=== PATIENT | female | born 1935 | race Caucasian/White ===

== ENCOUNTER 2016-05-13 09:27 | Inpatient (IN) | payer OTHER, MEDICARE ==
[~2016-05-13] VITALS: Ht 160 cm; Wt 69.2 kg
[2016-05-13] VITALS (13 sets, daily range): BP systolic 133–188; BP diastolic 63–80; PULSE 56–78; RESP 12–20; TEMP 97.9–98.7; O2SAT 97–100
[~2016-05-13 09:27] MED LIST: ASPI325T PO; CALC600T34 PO; CO Q100C7 PO; CYCL-36 PO; GEMF600 PO; GLIP5 PO; LOVA1TAB47 PO; METO50TA PO; SITA50 PO; VASO10TA8 PO; VICOTAB4 PO
[2016-05-13] MEDS ORDERED: HYDR-3516 PO (09:54)
[2016-05-13] MEDS ORDERED: SITA25 PO (09:54)
[2016-05-13] MEDS ORDERED: GLIP5TAB8 PO (09:54)
[2016-05-13] MEDS ORDERED: FENO1TAB39 PO (09:54)
[2016-05-13] MEDS ORDERED: FURO20TA PO (09:54)
[2016-05-13] MEDS ORDERED: TIZA4CAP3 PO (09:54)
[2016-05-13] MEDS ORDERED: ENAL2.5T PO (09:54)
[2016-05-13] MEDS ORDERED: LEVO25TA4 PO (09:54)
[2016-05-13] MEDS ORDERED: SODIUM CHLORIDE 0.9% FLUSH 5 ML FLUSH IVF PRN (10:00)
[2016-05-13 10:08] LABS: BASOPHIL # 0.1 TH/MM3 (0-0.2); BASOPHIL % 1.4 % (0.0-2.0); EOSINOPHIL # 0.2 TH/MM3 (0-0.4); EOSINOPHIL % 3.1 % (0.0-4.0); HEMO FLAGS DIFF FINAL; LYMPHOCYTE # 1.6 TH/MM3 (1.0-4.8); MEAN CELL VOLUME 89.3 FL (80.0-100.0); MEAN CORPUSCULAR HGB CONC 33.6 % (32.0-36.0); MONO % 6.9 % (0.0-8.0); NEUT % 63.6 % (16.0-70.0); PLATELET COUNT 224 TH/MM3 (150-450); RED BLOOD COUNT 4.36 MIL/MM3 (4.00-5.30); RED CELL DISTRIBUTION WIDTH 13.4 % (11.6-17.2); WHITE BLOOD COUNT 6.3 TH/MM3 (4.0-11.0)
[2016-05-13 10:22] LABS: APTT (PATIENT) 22.8 SEC (24.3-30.1); PROTHROMBIN TIME - PATIENT 10.6 SEC (9.8-11.6)
[2016-05-13 10:23] LABS: ALT (GPT) 29 U/L (10-53); ANION GAP 9 MEQ/L (5-15); AST (GOT) 22 U/L (15-37); BICARBONATE 27.4 MEQ/L (21.0-32.0); BLOOD UREA NITROGEN 19 MG/DL (7-18); CHLORIDE 103 MEQ/L (98-107); GLOMERULAR FILTRATION RATE 32 ML/MIN (>89); MAGNESIUM 1.9 MG/DL (1.5-2.5); POTASSIUM 3.6 MEQ/L (3.5-5.1); SODIUM (NA) 139 MEQ/L (136-145)
[2016-05-13 10:26] LABS: ALKALINE PHOSPHATASE 36 U/L (45-117); CREATINE KINASE 116 U/L (26-192); TOTAL BILIRUBIN ADULT 0.5 MG/DL (0.2-1.0)
--- NOTE | 2016-05-13 10:26 | RADRPT ---
EXAM DATE/TIME: 05/13/2016 10:13 [place] COMPARISON: No previous studies available for comparison. INDICATIONS : Heart Palpitations MEDICAL HISTORY : None. SURGICAL HISTORY : None. ENCOUNTER: Initial ACUITY: 1 day PAIN SCORE: 5/10 LOCATION: Bilateral chest FINDINGS: PA and lateral views of the chest demonstrate a normal-sized cardiac silhouette. There is no effusion , consolidation, or pneumothorax. The bones and soft tissues demonstrate no acute abnormality. Multip le EKG lines overlie the patient. CONCLUSION: No acute cardiopulmonary abnormality is identified. Charlie Whitfield MD on May 13, 2016 at 10:24 Board Certified Radiologist. This report was verified electronically.
[2016-05-13 10:39] LABS: CKMB 1.1 NG/ML (0.5-3.6)
--- NOTE | 2016-05-13 10:49 | PD ---
HPI Chief Complaint: Cardiac Complaint Time Seen by Provider: 09:40 Travel History International Travel<30 days: No Contact w/Intl Traveler<30days: No Traveled to known affect area: No History of Present Illness HPI Patient is an 81-year-old female who comes in because she says her internal combustion engine assembler told her to come in. She says she has been having irregular heartbeat. She says she has been feeling very dizzy especially when standing. She denies any falls. She says she was wearing a Holter monitor and it showed long pauses in her heart beats. She says she was told to come in yesterday, but she had things to do first. She denies any chest pain or shortness of breath. She says she is not having any symptoms at this time. PFSH Past Medical History Heart Rhythm Problems: Yes Cardiovascular Problems: Yes (RHYTHM PROBLEMS / HYPERTENSION) Diabetes: Yes Patient Takes Glucophage: No Diminished Hearing: No Hypertension: Yes Medical other: Yes Renal Failure: Yes (STAGE III) Influenza Vaccination: Yes Past Surgical History Hysterectomy: Yes Tonsillectomy: Yes Social History Alcohol Use: No Tobacco Use: No Substance Use: No Allergies-Medications (Allergen,Severity, Reaction): Coded Allergies: Aspirin (Verified Allergy, Severe, 05/13/16) STAGE III KIDNEY FAILURE Sulfa (Verified Allergy, Mild, Rash, 05/13/16) Reported Meds & Prescriptions Reported Meds & Active Scripts Active Reported Tizanidine (Tizanidine HCl) 4 Mg Cap 4 Mg PO TID PRN Levothyroxine (Levothyroxine Sodium) 25 Mcg Tab 25 Mcg PO DAILY Hydrocodone-Acetaminophen 5-325 mg Tab 1 Tab PO Q6H PRN Glipizide 5 Mg Tab 5 Mg PO BIDAC Take 30 minutes before a meal Furosemide 20 Mg Tab 20 Mg PO MOWEDFRI Fenofibrate 120 Mg Tab 108 Mg PO DAILY Enalapril (Enalapril Maleate) 2.5 Mg Tab 2.5 Mg PO DAILY Januvia (Sitagliptin Phosphate) 25 Mg Tab 25 Mg PO DAILY Review of Systems Except as stated in HPI: all other systems reviewed are Neg General / Constitutional: No: Fever, Chills Eyes: No: Blurred Vision HENT: Positive: Lightheadedness, No: Headaches Cardiovascular: Positive: Irregular Rhythm, No: Chest Pain or Discomfort Respiratory: No: Shortness of Breath Gastrointestinal: No: Nausea, Vomiting Musculoskeletal: No: Myalgias, Arthralgias Skin: No Rash Neurologic: Positive: Dizziness, No: Weakness Physical Exam Narrative GENERAL: Awake and alert in no acute distress. SKIN: Warm and dry. HEAD: Atraumatic. Normocephalic. EYES: Pupils equal and round. No scleral icterus. Extraocular movements intact , no nystagmus. ENT: Mucous membranes pink and moist. NECK: Trachea midline. No JVD. CARDIOVASCULAR: Regular rate and rhythm. No murmur appreciated. RESPIRATORY: No accessory muscle use. Clear to auscultation. Breath sounds equal bilaterally. GASTROINTESTINAL: Abdomen soft, non-tender, nondistended. MUSCULOSKELETAL: No obvious deformities. No clubbing. No cyanosis. No edema. NEUROLOGICAL: Awake and alert. No obvious cranial nerve deficits. Motor grossly within normal limits. Normal speech. PSYCHIATRIC: Appropriate mood and affect; insight and judgment normal. Data Data Last Documented VS Vital Signs Date Time Temp Pulse Resp B/P Pulse Ox O2 Delivery O2 Flow Rate FiO2 05/13/16 11:05 60 16 140/63 100 Room Air 05/13/16 09:37 98.4 Orders Electrocardiogram (05/13/16 ) Ckmb (Isoenzyme) Profile (05/13/16 09:49) Complete Blood Count With Diff (05/13/16 09:49) Comprehensive Metabolic Panel (05/13/16 09:49) Magnesium (Mg) (05/13/16 09:49) Prothrombin Time / Inr (Pt) (05/13/16 09:49) Act Partial Throm Time (Ptt) (05/13/16 09:49) Troponin I (05/13/16 09:49) Ecg Monitoring (05/13/16 09:49) Bilateral Bp Monitoring (05/13/16 09:49) Iv Access Insert/Monitor (05/13/16 09:49) Oximetry (05/13/16 09:49) Sodium Chloride 0.9% Flush (Ns Flush) (05/13/16 10:00) Chest, Pa & Lat (05/13/16 09:49) CKMB (05/13/16 09:55) CKMB% (05/13/16 09:55) Admit To Inpatient (05/13/16 ) Inpatient Certification (05/13/16 ) Diet Heart Healthy (05/13/16 Lunch) Activity Bed Rest With Brp (05/13/16 11:35) Vital Signs (Adult) ROSI.Q4H (05/13/16 11:35) Admit Order (Ed Use Only) (05/13/16 ) Consult Cardiology (05/13/16 ) Labs Laboratory Tests Test 05/13/16 09:55 White Blood Count 6.3 TH/MM3 Red Blood Count 4.36 MIL/MM3 Hemoglobin 13.1 GM/DL Hematocrit 39.0 % Mean Corpuscular Volume 89.3 FL Mean Corpuscular Hemoglobin 30.0 PG Mean Corpuscular Hemoglobin 33.6 % Concent Red Cell Distribution Width 13.4 % Platelet Count 224 TH/MM3 Mean Platelet Volume 8.3 FL Neutrophils (%) (Auto) 63.6 % Lymphocytes (%) (Auto) 25.0 % Monocytes (%) (Auto) 6.9 % Eosinophils (%) (Auto) 3.1 % Basophils (%) (Auto) 1.4 % Neutrophils # (Auto) 4.0 TH/MM3 Lymphocytes # (Auto) 1.6 TH/MM3 Monocytes # (Auto) 0.4 TH/MM3 Eosinophils # (Auto) 0.2 TH/MM3 Basophils # (Auto) 0.1 TH/MM3 CBC Comment DIFF FINAL Differential Comment Prothrombin Time 10.6 SEC Prothromb Time International 1.0 RATIO Ratio Activated Partial 22.8 SEC Thromboplast Time Sodium Level 139 MEQ/L Potassium Level 3.6 MEQ/L Chloride Level 103 MEQ/L Carbon Dioxide Level 27.4 MEQ/L Anion Gap 9 MEQ/L Blood Urea Nitrogen 19 MG/DL Creatinine 1.55 MG/DL Estimat Glomerular Filtration 32 ML/MIN Rate Random Glucose 203 MG/DL Calcium Level 9.2 MG/DL Magnesium Level 1.9 MG/DL Total Bilirubin 0.5 MG/DL Aspartate Amino Transf 22 U/L (AST/SGOT) Alanine Aminotransferase 29 U/L (ALT/SGPT) Alkaline Phosphatase 36 U/L Total Creatine Kinase 116 U/L Creatine Kinase MB 1.1 NG/ML Troponin I LESS THAN 0.02 NG/ML Total Protein 7.3 GM/DL Albumin 4.0 GM/DL Thyroid Stimulating Hormone 1.240 uIU/ML 3rd Gen [facility] Medical Decision Making Medical Screen Exam Complete: Yes Emergency Medical Condition: Yes Medical Record Reviewed: Yes Interpretation(s) ECG shows normal sinus rhythm at 61. No ST elevation or depression. Rate is regular. Differential Diagnosis Arrhythmia versus electrolyte abnormality versus ACS Narrative Course Patient is an 81-year-old female who comes in because her heart rate has been irregular, and her internal combustion engine assembler told her to come in. Currently her exam shows no abnormalities. Labs sent show no acute abnormalities. Patient stable on the emergency department. I spoke with Dr. Contreras of cardiology who will see the patient is an inpatient. Patient likely needs a pacemaker as she has been having pauses in her heart rate. Will be admitted for further management. Diagnosis Primary Impression: Cardiac dysrhythmia Qualified Code: I49.8 - Other cardiac arrhythmia Admitting Information Admitting Physician Requests: Admit Luciana Mayberry MD May 13, 2016 10:49
[2016-05-13] MEDS ORDERED: ACETAMINOPHEN/HYDROcodone 325 MG/5 MG TAB PO PRN (15:00)
--- NOTE | 2016-05-13 15:15 | HHI.HP ---
[facility] Service [place] [facility] Primary Care Physician Sophie Mitchell MD Admission Diagnosis Cardiac arrhythmia Diagnoses: Chief Complaint: Dizziness lightheadedness Travel History International Travel<30 Days: No Contact w/Intl Traveler <30 Da: No Traveled to Known Affected Are: No History of Present Illness Patient is a very pleasant 81-year-old female with known history of hypertension hyperlipidemia, diabetes type 2 who has been having palpitations for many years now associated with some dizziness and generalized fatigue. It is unclear if she has A. fib but she states that she has irregular rhythm. Patient was on beta blockers she was on metoprolol 50 mg twice a day. Followed as an outpatient by a furnace filler who latter part of February did a stress test and 24-hour Holter monitoring which was apparently negative. However for the past 30 days been having same symptoms and 4 days ago was fitted with an event monitor because of her symptoms. With regards to her diabetes type 2 patient states she has good hypoglycemic awareness and above symptoms are definitely different from her hypoglycemic reaction which she rarely gets Apparently on fourth day of event monitoring. - Yesterday - fourth day was called by company and was instructed to come here to the emergency room. However patient stated that she had some laundry to finish that's why she didn' t come here.. On review of her medication she was on metoprolol 50 mg twice a day. This was decreased to 25 mg daily 2 days ago. Patient otherwise denies any fever or chills, no syncopal episodes ,chest pain shortness of breath paroxysmal nocturnal dyspnea orthopnea or any leg swelling Review of Systems Constitutional: DENIES: Diaphoretic episodes, Fatigue, Fever, Weight gain, Weight loss, Chills, Dizziness, Change in appetite, Night Sweats Endocrine: DENIES: Abnorml menstrual pattern, Heat/cold intolerance, Polydipsia , Polyuria, Polyphagia Eyes: DENIES: Blurred vision, Diplopia, Eye inflammation, Eye pain, Vision loss , Photosensitivity, Double Vision Ears, nose, mouth, throat: DENIES: Tinnitus, Hearing loss, Vertigo, Nasal discharge, Oral lesions, Throat pain, Hoarseness, Ear Pain, Running Nose, Epistaxis, Sinus Pain, Toothache, Odynophagia Respiratory: DENIES: Apneas, Cough, Snoring, Wheezing, Hemoptysis, Sputum production, Shortness of breath Cardiovascular: COMPLAINS OF: Palpitations, DENIES: Chest pain, Syncope, Dyspnea on Exertion, PND, Lower Extremity Edema, Orthopnea, Claudication Gastrointestinal: DENIES: Abdominal pain, Black stools, Bloody stools, Constipation, Diarrhea, Nausea, Vomiting, Difficulty Swallowing, Anorexia Genitourinary: DENIES: Abnormal vaginal bleeding, Dysmenorrhea, Dyspareunia, Sexual dysfunction, Urinary frequency, Urinary incontinence, Urgency, Hematuria , Dysuria, Nocturia, Vaginal discharge Musculoskeletal: COMPLAINS OF: Back pain, DENIES: Joint pain, Muscle aches, Stiffness, Joint Swelling, Neck pain Integumentary: DENIES: Abnormal pigmentation, Pruritus, Rash, Nail changes, Breast masses, Breast skin changes, Nipple discharge Hematologic/lymphatic: DENIES: Bruising, Lymphadenopathy Immunologic/allergic: DENIES: Eczema, Urticaria Neurologic: DENIES: Abnormal gait, Headache, Localized weakness, Paresthesias, Seizures, Speech Problems, Tremor, Poor Balance Psychiatric: DENIES: Anxiety, Confusion, Mood changes, Depression, Hallucinations, Agitation, Suicidal Ideation, Homicidal Ideation, Delusions Past Family Social History Past Medical History Hypertension Chronic back pain Hypothyroidism Diabetes type 2 Chronic kidney insufficiency Past Surgical History Hysterectomy Left rotator cuff surgery 15 years ago Right knee surgery 1960 Reported Medications Enalapril 2.5 mg daily Midrin 4 Mg 3 Times a Day Januvia 25 Mg Daily Tri-Chlor 148 Mg Daily Lasix 20 Mg Sunday Hydrocodone 10 Mg Every 8 When Necessary Glipizide 5 Mg Twice a Day Synthroid 25 g Daily Allergies: Coded Allergies: Aspirin (Verified Allergy, Severe, 05/13/16) STAGE III KIDNEY FAILURE Sulfa (Verified Allergy, Mild, Rash, 05/13/16) Family History Noncontributory Social History Smoker quit many years ago 30 years ago Very rarely drinks beer Denies any substance abuse Physical Exam Vital Signs Vital Signs Date Time Temp Pulse Resp B/P Pulse Ox O2 Delivery O2 Flow Rate FiO2 05/13/16 14:49 57 18 165/70 99 Room Air 05/13/16 12:32 67 20 188/75 99 Room Air 05/13/16 11:05 60 16 140/63 100 Room Air 05/13/16 09:37 98.4 62 12 168/72 99 05/13/16 09:31 97.9 72 16 163/72 97 Room Air Physical Exam GENERAL: This is a well-nourished, well-developed patient, in no apparent distress. SKIN: No rashes, ecchymoses or lesions. Cool and dry. HEAD: Atraumatic. Normocephalic. No temporal or scalp tenderness. EYES: Pupils equal round and reactive. Extraocular motions intact. No scleral icterus. No injection or drainage. ENT: Nose without bleeding, pThroat without erythema, tonsillar hypertrophy or exudate. Uvula midline. Airway patent. NECK: Trachea midline. No JVD or lymphadenopathy. Supple, nontender, no meningeal signs. CARDIOVASCULAR: Bradycardia heart rate in the 50s sinus and rhythm without murmurs, gallops, or rubs. RESPIRATORY: Clear to auscultation. Breath sounds equal bilaterally. No wheezes , rales, or rhonchi. GASTROINTESTINAL: Abdomen soft, non-tender, nondistended. No hepato-splenomegaly , or palpable masses. No guarding. MUSCULOSKELETAL: Extremities without clubbing, cyanosis, or edema. No joint tenderness, effusion, or edema noted. No calf tenderness. Negative Homans sign bilaterally. NEUROLOGICAL: Awake and alert. Cranial nerves II through XII intact. Motor and sensory grossly within normal limits. Five out of 5 muscle strength in all muscle groups. Normal speech. Laboratory Laboratory Tests Test 05/13/16 09:55 White Blood Count 6.3 Red Blood Count 4.36 Hemoglobin 13.1 Hematocrit 39.0 Mean Corpuscular Volume 89.3 Mean Corpuscular Hemoglobin 30.0 Mean Corpuscular Hemoglobin 33.6 Concent Red Cell Distribution Width 13.4 Platelet Count 224 Mean Platelet Volume 8.3 Neutrophils (%) (Auto) 63.6 Lymphocytes (%) (Auto) 25.0 Monocytes (%) (Auto) 6.9 Eosinophils (%) (Auto) 3.1 Basophils (%) (Auto) 1.4 Neutrophils # (Auto) 4.0 Lymphocytes # (Auto) 1.6 Monocytes # (Auto) 0.4 Eosinophils # (Auto) 0.2 Basophils # (Auto) 0.1 CBC Comment DIFF FINAL Differential Comment Prothrombin Time 10.6 Prothromb Time International 1.0 Ratio Activated Partial 22.8 Thromboplast Time Sodium Level 139 Potassium Level 3.6 Chloride Level 103 Carbon Dioxide Level 27.4 Anion Gap 9 Blood Urea Nitrogen 19 Creatinine 1.55 Estimat Glomerular Filtration 32 Rate Random Glucose 203 Calcium Level 9.2 Magnesium Level 1.9 Total Bilirubin 0.5 Aspartate Amino Transf 22 (AST/SGOT) Alanine Aminotransferase 29 (ALT/SGPT) Alkaline Phosphatase 36 Total Creatine Kinase 116 Creatine Kinase MB 1.1 Troponin I LESS THAN 0.02 Total Protein 7.3 Albumin 4.0 Result Diagram: 05/13/1655 05/13/16954 Imaging Last Impressions Chest X-Ray 05/13/16948 Signed Impressions: Service Date/Time: Friday, May 13, 2016 10:13 - CONCLUSION: No acute cardiopulmonary abnormality is identified. Charlie Whitfield MD Assessment and Plan Assessment and Plan 81 year old female presenting withsymptoms of dizziness and generalized weakness , palpitations Bradarrhythmia on event monitor currently on telemetry in sinus rhythm heart rate in the 50s We'll discontinue beta timothy altogether. Cardiology has been consulted. We will place on telemetry. History of hypertension Patient continue on Vasotec 2.5 mg daily. Lasix 20 mg Sunday We'll add calcium channel timothy amlodipine 2.5 mg by mouth daily for better control History of diabetes type 2 patient states good hypoglycemic awareness Will continue checking blood sugars twice a day Check a hemoglobin A1c History of hyperlipidemia continue on Tri-Cor History of hypothyroidism continue Synthroid 25 g daily check TSH History of chronic back pain Continue on Lortab 10 mg every 8. Tizanidine 4 mg 3 times a day History of chronic kidney insufficiency. Her creatinine is near baseline Lovenox for DVT prophylaxis Maci Parikh MD May 13, 2016 15:15 Maci Parikh MD May 13, 2016 15:15
[2016-05-13] MEDS: amLODIPine BESYLATE 5 MG TAB PO SCH (15:31)
[2016-05-13] MEDS: ACETAMINOPHEN/HYDROcodone 325 MG/10 MG TAB PO PRN (17:52)
--- NOTE | 2016-05-13 20:44 | MB ---
cc: EREN GODWIN YU H. M.D. BARTHOLOMEW,ZOIE Lino MD DATE OF CONSULTATION: 05/13/2016. REASON FOR CONSULTATION: Cardiac arrhythmia with pauses. PRIMARY CARE PHYSICIAN: Janis Mitchell MD. PRIMARY PROJECT MANAGEMENT ANALYST: Zoie Arnold MD. HISTORY OF PRESENT ILLNESS: Anali Ramirez is a pleasant 81-year-old female who presented to the [facility] Emergency Room on May 13, 2016 at the request of her outpatient real estate appraiser, Dr. Zoie Arnold. Anali had been worked up for palpitations including a stress test which was negative and then a Holter monitor. Afterwards an event monitor was placed and episodes of significant pauses of 3 to 4-1/2 seconds were noted. The patient correlated these symptoms with dizziness occasionally. After seeing Dr. Arnold in the office yesterday (May 12, 2016), Dr. Arnold instructed the patient that she should come to the emergency room. Ms. Ramirez had stuff do to around the house so she presented today. She currently denies chest pain, shortness of breath or lightheadedness. She previously was on metoprolol 50 milligrams twice a day and this was then decreased to 25 milligrams daily two to three days ago. When she has the episodes she feels extremely lightheaded for a few seconds and then it goes away. PAST MEDICAL HISTORY: 1. Hypertension 2. Chronic back pain. 3. Hypothyroidism. 4. Type 2 diabetes mellitus. 5. Chronic kidney disease. PAST SURGICAL HISTORY: 1. Hysterectomy. 2. Left rotator cuff surgery (fifteen years ago). 3. Right knee surgery (1960). ALLERGIES: 1. ASPIRIN. 2. SULFA DRUGS. MEDICATIONS: 1. Enalapril 2.5 milligrams daily. 2. Midodrine 4 milligrams three times a day. 3. Januvia 25 milligrams daily. 4. Tricor 148 milligrams daily. 5. Lasix 20 milligrams Sunday, Sunday, Sunday. 6. Hydrocodone 10 milligrams every 8 hours as needed for pain. 7. Glipizide 5 milligrams twice a day. 8. Synthroid 25 micrograms daily. FAMILY HISTORY: Denies premature coronary artery disease or sudden cardiac within the family. SOCIAL HISTORY: The patient previously was a smoker but quit around 30 years ago. She rarely drinks beer. Denies any substance abuse. REVIEW OF SYSTEMS: Fourteen systems were reviewed including osteopathic in the history and physical with pertinent positives and negatives as above; otherwise negative. PHYSICAL EXAMINATION VITAL SIGNS: Temperature 98.4, heart rate 56, blood pressure 168/70, respirations 16, pulse ox 98% on room air. GENERAL: In general the patient appears well and in no acute distress. Awake, alert and oriented times three. HEAD, EYES, EARS, NOSE, THROAT: Extraocular muscles intact. Mucous membranes moist. NECK: The neck is supple. No JVD at 45 degrees. No carotid bruits heard bilaterally. Carotid upstroke is brisk in nature. HEART: Regular rate and rhythm. Positive first and second heart sounds with no murmurs, gallops or rubs. LUNGS: Clear to auscultation bilaterally. No wheezes, rales or rhonchi. ABDOMEN: Soft, nontender, nondistended. No organomegaly noted. EXTREMITIES: No clubbing, cyanosis or edema. Femoral and distal pulses are intact bilaterally. NEUROLOGIC: No focal deficits. SKIN: Warm, dry and intact. OSTEOPATHIC: Osteopathically, no kyphoscoliosis, lordosis or paraspinal tender points. LABORATORY FINDINGS: Hemoglobin 13.1, hematocrit 39.0, platelets 224,000. Potassium 3.6, BUN 19, creatinine 1.55. Troponin less than 0.02. TSH 1.24. EKGS: Electrocardiogram (May 13, 2078 at 0939): Sinus rhythm at 61 beats per minute, poor R-wave progression, cannot rule out possible old anterior myocardial infarction. IMPRESSIONS: 1. Significant pauses on event monitor of 3 to 4.5 seconds for which the patient is symptomatic and has lightheadedness and pre-syncopal episodes. 2. Hypertension. 3. Chronic back pain. 4. Hypothyroidism. 5. Type 2 diabetes mellitus. 6. Chronic kidney insufficiency. 7. Remote tobacco history, quitting around 30 years ago. 8. Pharmacologic nuclear stress test (March 21, 2016) showing no ischemia defect, ejection fraction calculated at 69%. RECOMMENDATIONS: 1. Ms. Ramirez appears to be having significant pauses while awake leading to presyncopal episodes. She will be evaluated for a permanent pacemaker. 2. We will stop her beta blockade. 3. Will check a 2-D echo to look at her overall left ventricular function, cardiac structure and possible valvulopathies. 4. She will be followed on telemetry. 5. At this time, she does not appear to need a temporary transvenous pacer, but at any time if there are significant pauses, consideration could be made for placing her on low levels of dopamine versus a transvenous pacer if significant pauses inpatient are noted. Thank you for allowing me to see Anali Ramirez. If there are any questions, please do not hesitate to call. Eren Godwin DO VGP/JCC /5:21 PM /8:28 PM MTDD
[2016-05-14] VITALS (20 sets, daily range): BP systolic 116–164; BP diastolic 64–76; PULSE 54–84; RESP 18–20; TEMP 97.7–98.4; O2SAT 95–99
[2016-05-14] MEDS: LEVOTHYROXINE SODIUM 25 MCG TAB PO SCH (05:24)
[2016-05-14] MEDS: FENOFIBRATE 145 MG TAB PO SCH (09:04)
[2016-05-14] MEDS: amLODIPine BESYLATE 5 MG TAB PO SCH (09:05)
[2016-05-14] MEDS: ENALAPRIL MALEATE 2.5 MG TAB PO SCH (09:05)
--- NOTE | 2016-05-14 11:35 | HHI.PR ---
Subjective Remarks patient no complains of dizziness complains of pain back pain- states history of chronic pain from [facility] in [facility] past telemetry- sinus HR variable Objective Vitals Vital Signs Date Time Temp Pulse Resp B/P Pulse Ox O2 Delivery O2 Flow Rate FiO2 05/14/16 07:30 98.3 75 20 164/76 99 05/14/16 04:00 65 05/14/16 03:00 66 05/14/16 03:00 57 20 98 05/14/16 02:00 69 05/14/16 01:00 64 05/14/16 00:00 62 05/13/16 23:00 64 05/13/16 23:00 98.0 70 20 134/80 97 05/13/16 22:00 56 05/13/16 21:00 63 05/13/16 20:00 64 05/13/16 19:00 74 05/13/16 19:00 98.0 56 20 133/73 99 05/13/16 18:42 78 05/13/16 18:00 98.7 62 20 151/80 100 05/13/16 16:31 56 16 168/70 98 Room Air 05/13/16 14:49 57 18 165/70 99 Room Air 05/13/16 12:32 67 20 188/75 99 Room Air I/O 05/13/16 05/13/16 05/13/16 05/14/16 05/14/16 05/14/16 07:00 15:00 23:00 07:00 15:00 23:00 Intake Total 360 ml Balance 360 ml Intake Oral 360 ml # Voids 3 Result Diagram: 05/13/1655 05/13/16 0955 Imaging Last Impressions Chest X-Ray 05/13/16 0949 Signed Impressions: Service Date/Time: Friday, May 13, 2016 10:13 - CONCLUSION: No acute cardiopulmonary abnormality is identified. Charlie Whitfield MD Objective Remarks GENERAL: awake and alert, oriented x 3, no distress SKIN: Warm and dry. HEAD: Normocephalic. EYES: No scleral icterus. No injection or drainage. NECK: Supple, trachea midline. No JVD or lymphadenopathy. CARDIOVASCULAR: Regular rate and rhythm without murmurs, gallops, or rubs. RESPIRATORY: Breath sounds equal bilaterally. No accessory muscle use. GASTROINTESTINAL: Abdomen soft, non-tender, nondistended. MUSCULOSKELETAL: No cyanosis, or edema. BACK: Nontender without obvious deformity. No CVA tenderness. gait steady A/P Assessment and Plan 81 year old female presenting withsymptoms of dizziness and generalized weakness , palpitations Bradarrhythmia on event monitor as OP currently on telemetry in sinus rhythm heart rate in the 50s beta timothy DC Cardiology ff History of hypertension Patient continue on Vasotec 2.5 mg daily. Lasix 20 mg Sunday We'll add calcium channel timothy amlodipine 2.5 mg by mouth daily for better control History of diabetes type 2 patient states good hypoglycemic awareness Will continue checking blood sugars twice a day continue on Glipizide Check a hemoglobin A1c History of hyperlipidemia continue on Tri-Cor History of hypothyroidism continue Synthroid 25 g daily check TSH History of chronic back pain Continue on Lortab 10 mg every 8. Tizanidine 4 mg 3 times a day History of chronic kidney insufficiency. Her creatinine is near baseline Lovenox for DVT prophylaxis Maci Parikh MD May 14, 2016 11:35
--- NOTE | 2016-05-14 12:16 | PD.CARD.PN ---
Subjective Subjective Remarks No episodes of pre-syncope, syncope Objective Medications Current Medications Medications (Trade) Dose Ordered Sig/Rene Route Start Time Stop Time Status Last Admin (Vasotec) 2.5 mg DAILY PO 05/14/16 09:00 05/14/16 09:05 (Tricor) 145 mg DAILY PO 05/14/16 09:00 05/14/16 09:04 (Synthroid) 25 mcg DAILY@06 PO 05/14/16 06:00 05/14/16 05:24 (Zanaflex) 4 mg TID PRN PO 05/13/16 15:00 (Norvasc) 2.5 mg DAILY PO 05/13/16 15:15 05/14/16 09:05 (Ruffin 10-325 Mg) 1 tab Q8HR PRN PO 05/13/16 15:30 05/13/16 17:52 (Lovenox Inj) 30 mg Q24H SQ 05/14/16 12:00 (Glucotrol) 5 mg BIDAC PO 05/14/16 16:00 Vital Signs / I&O Vital Signs Date Time Temp Pulse Resp B/P Pulse Ox O2 Delivery O2 Flow Rate FiO2 05/14/16 07:30 98.3 75 20 164/76 99 05/14/16 04:00 65 05/14/16 03:00 66 05/14/16 03:00 57 20 98 05/14/16 02:00 69 05/14/16 01:00 64 05/14/16 00:00 62 05/13/16 23:00 64 05/13/16 23:00 98.0 70 20 134/80 97 05/13/16 22:00 56 05/13/16 21:00 63 05/13/16 20:00 64 05/13/16 19:00 74 05/13/16 19:00 98.0 56 20 133/73 99 05/13/16 18:42 78 05/13/16 18:00 98.7 62 20 151/80 100 05/13/16 16:31 56 16 168/70 98 Room Air 05/13/16 14:49 57 18 165/70 99 Room Air 05/13/16 12:32 67 20 188/75 99 Room Air I/O 05/13/16 05/13/16 05/13/16 05/14/16 05/14/1617 07:00 15:00 23:00 07:00 15:00 23:00 Intake Total 360 ml Balance 360 ml Intake Oral 360 ml # Voids 3 Physical Exam GENERAL: NAD SKIN: Warm and dry. HEAD: Atraumatic. Normocephalic. EYES: Pupils equal and round. No scleral icterus. No injection or drainage. ENT: No nasal bleeding or discharge. Mucous membranes pink and moist. NECK: Trachea midline. No JVD. CARDIOVASCULAR: Regular rate and rhythm. RESPIRATORY: No accessory muscle use. Clear to auscultation. Breath sounds equal bilaterally. GASTROINTESTINAL: Abdomen soft, non-tender, nondistended. Hepatic and splenic margins not palpable. MUSCULOSKELETAL: Extremities without clubbing, cyanosis, or edema. No obvious deformities. NEUROLOGICAL: Awake and alert. No obvious cranial nerve deficits. Motor grossly within normal limits. Five out of 5 muscle strength in the arms and legs. Normal speech. PSYCHIATRIC: Appropriate mood and affect; insight and judgment normal. Assessment and Plan Problem List: (1) Bradycardia (2) Sinus pause Assessment and Plan 1) 3-4.5 second pauses on outpatient event monitor, correlating to symptoms of pre-syncope 2) NPO after midnight for consideration of PPM 3) Continue to hold BB 4) Outpatient stress test negative for ischemia Eren Contreras DO May 14, 2016 12:16
[2016-05-14] MEDS: ACETAMINOPHEN/HYDROcodone 325 MG/10 MG TAB PO PRN (12:48)
[2016-05-14] MEDS: ENOXAPARIN SODIUM 30 MG/0.3 ML SYRINGE SQ SCH (12:48)
[2016-05-14] MEDS: glipiZIDE 5 MG TAB PO SCH (16:00)
[2016-05-15] VITALS (10 sets, daily range): BP systolic 113–154; BP diastolic 55–71; PULSE 48–98; RESP 18; TEMP 98.4–98.6; O2SAT 97–98
[2016-05-15] MEDS: LEVOTHYROXINE SODIUM 25 MCG TAB PO SCH (05:19)
[2016-05-15] MEDS: glipiZIDE 5 MG TAB PO SCH ×2 (05:21→08:13)
--- NOTE | 2016-05-15 08:05 | HHI.PR ---
Subjective Remarks awake and alert, currently on telemetry sinus - rate 70s no dizziness telemetry reviewed- overnight- when asleep - rate goes down to 30s Objective Vitals Vital Signs Date Time Temp Pulse Resp B/P Pulse Ox O2 Delivery O2 Flow Rate FiO2 05/15/16 05:23 58 18 113/66 98 05/15/16 03:00 48 05/14/16 23:00 60 05/14/16 23:00 55 18 125/65 96 05/14/16 19:00 73 05/14/16 19:00 98.2 69 18 120/68 96 05/14/16 18:00 72 05/14/16 17:00 72 05/14/16 16:00 64 05/14/16 15:00 98.4 54 20 116/70 96 05/14/16 15:00 61 05/14/16 14:00 82 05/14/16 13:53 18 05/14/16 13:00 66 05/14/16 12:00 67 05/14/16 11:00 65 05/14/16 11:00 97.7 73 20 120/64 95 05/14/16 10:00 69 05/14/16 09:00 84 I/O 05/14/16 05/14/16 05/14/16 05/15/16 05/15/16 05/15/16 07:00 15:00 23:00 07:00 15:00 23:00 Intake Total 360 ml 960 ml 200 ml Balance 360 ml 960 ml 200 ml Intake Oral 360 ml 960 ml 200 ml # Voids 3 5 3 Result Diagram: 05/13/1655 05/13/1655 Imaging Last Impressions Chest X-Ray 05/13/16 0949 Signed Impressions: Service Date/Time: Friday, May 13, 2016 10:13 - CONCLUSION: No acute cardiopulmonary abnormality is identified. Charlie Whitfield MD Objective Remarks GENERAL: awake and alert, oriented x 3, no distress SKIN: Warm and dry. HEAD: Normocephalic. EYES: No scleral icterus. No injection or drainage. NECK: Supple, trachea midline. No JVD or lymphadenopathy. CARDIOVASCULAR: Regular rate and rhythm RESPIRATORY: Breath sounds equal bilaterally. No accessory muscle use. GASTROINTESTINAL: Abdomen soft, non-tender, nondistended. MUSCULOSKELETAL: No cyanosis, or edema. BACK: Nontender without obvious deformity. No CVA tenderness. gait steady A/P Assessment and Plan 81 year old female presenting withsymptoms of dizziness and generalized weakness , palpitations Bradarrhythmia on event monitor as OP currently on telemetry in sinus rhythm heart rate in the 50s beta timothy was DC on admission cleared by Cardiology for DC- OP ff up History of hypertension- better readings Patient continue on Vasotec 2.5 mg daily. Lasix 20 mg Sunday amlodipine 2.5 mg by mouth daily for better control BB discontinued due to above History of diabetes type 2 patient states good hypoglycemic awareness A1C 7.4 Will continue checking blood sugars twice a day- readings 150- 207 continue on Glipizide. her Januvia restart as OP hemoglobin A1c- pending History of hyperlipidemia continue on Tri-Cor History of hypothyroidism continue Synthroid 25 g daily. TSH normal History of chronic back pain Continue on Lortab 10 mg every 8. Tizanidine 4 mg 3 times a day History of chronic kidney insufficiency. Her creatinine is near baseline Lovenox for DVT prophylaxis HOme today FF up[ with PCP- Dr. Mitchell FF up with Dr. Arnold in 3-5 days FF up with Nephrology - Dr. Brannon as scheduled Home with event monitor Maci Parikh MD May 15, 2016 08:05
[2016-05-15] MEDS: amLODIPine BESYLATE 5 MG TAB PO SCH (08:13)
[2016-05-15] MEDS: ENALAPRIL MALEATE 2.5 MG TAB PO SCH (08:13)
[2016-05-15] MEDS: FENOFIBRATE 145 MG TAB PO SCH (08:13)
[2016-05-15] MEDS ORDERED: FUROSEMIDE 20 MG TAB PO SCH (09:00)
[2016-05-15] MEDS: ENOXAPARIN SODIUM 30 MG/0.3 ML SYRINGE SQ SCH (12:00)
[2016-05-15 12:22] LABS: HEMOGLOBIN A1a 1.3 %; HEMOGLOBIN A1b 2.2 %; HEMOGLOBIN Ao 81.7 %; HEMOGLOBIN LA1C 2.8 %; HEMOGLOBIN P3 4.3 %
--- NOTE | 2016-05-15 12:40 | PD.CARD.PN ---
Subjective Subjective Remarks Rate over night around 45 while sleeping... otherwise no significant bradycardia /pauses/blocks No lightheadedness Objective Medications Current Medications Medications (Trade) Dose Ordered Sig/Rene Route Start Time Stop Time Status Last Admin (NS Flush) 2 ml UNSCH PRN IVF 05/13/16 10:00 (Vasotec) 2.5 mg DAILY PO 05/14/16 09:00 05/15/16 08:13 (Tricor) 145 mg DAILY PO 05/14/16 09:00 05/15/16 08:13 (Synthroid) 25 mcg DAILY@06 PO 05/14/16 06:00 05/15/16 05:19 (Zanaflex) 4 mg TID PRN PO 05/13/16 15:00 (Norvasc) 2.5 mg DAILY PO 05/13/16 15:15 05/15/16 08:13 (Carlos 10-325 Mg) 1 tab Q8HR PRN PO 05/13/16 15:30 05/14/16 12:48 (Lovenox Inj) 30 mg Q24H SQ 05/14/16 12:00 05/14/16 12:48 (Glucotrol) 5 mg BIDAC PO 05/14/16 16:00 05/15/16 08:13 Vital Signs / I&O Vital Signs Date Time Temp Pulse Resp B/P Pulse Ox O2 Delivery O2 Flow Rate FiO2 05/15/16 07:15 98.4 61 18 125/55 97 05/15/16 05:23 58 18 113/66 98 05/15/16 03:00 48 05/14/16 23:00 60 05/14/16 23:00 55 18 125/65 96 05/14/16 19:00 73 05/14/16 19:00 98.2 69 18 120/68 96 05/14/16 18:00 72 05/14/16 17:00 72 05/14/16 16:00 64 05/14/16 15:00 98.4 54 20 116/70 96 05/14/16 15:00 61 05/14/16 14:00 82 05/14/16 13:53 18 05/14/16 13:00 66 I/O 05/14/16 05/14/16 05/14/16 05/15/16 05/15/16 05/15/16 07:00 15:00 23:00 07:00 15:00 23:00 Intake Total 360 ml 960 ml 200 ml Balance 360 ml 960 ml 200 ml Intake Oral 360 ml 960 ml 200 ml # Voids 3 5 3 Physical Exam GENERAL: NAD SKIN: Warm and dry. HEAD: Atraumatic. Normocephalic. EYES: Pupils equal and round. No scleral icterus. No injection or drainage. ENT: No nasal bleeding or discharge. Mucous membranes pink and moist. NECK: Trachea midline. No JVD. CARDIOVASCULAR: Regular rate and rhythm. RESPIRATORY: No accessory muscle use. Clear to auscultation. Breath sounds equal bilaterally. GASTROINTESTINAL: Abdomen soft, non-tender, nondistended. Hepatic and splenic margins not palpable. MUSCULOSKELETAL: Extremities without clubbing, cyanosis, or edema. No obvious deformities. NEUROLOGICAL: Awake and alert. No obvious cranial nerve deficits. Motor grossly within normal limits. Five out of 5 muscle strength in the arms and legs. Normal speech. PSYCHIATRIC: Appropriate mood and affect; insight and judgment normal. Assessment and Plan Problem List: (1) Bradycardia (2) Sinus pause Assessment and Plan 1) 3-4.5 second pauses on outpatient event monitor, correlating to symptoms of pre-syncope while on Lopressor 50mg BID 2) BB stopped, now rare sinus hazel while awake, no pauses 3) No indication for PPM at this time, will discharge off BB 4) Has event monitor at home for another 17-19 days, will place it back on to record rhythm... if further episodes off BB, then consider PPM Eren Contreras DO May 15, 2016 12:40
[2016-05-15] MEDS ORDERED: PILL SPLITTER OTHER PRN (13:00)
[2016-05-15] MEDS ORDERED: AMLO5 PO (13:00)
[2016-05-15] MEDS ORDERED: glipiZIDE 5 MG TAB PO SCH (16:00)
--- NOTE | 2016-05-15 21:54 | EKG ---
Date Performed: 05/13/2016 Time Performed: 09:39:04 PTAGE: 81 years EKG: Sinus rhythm POSSIBLE ANTERIOR MYOCARDIAL INFARCTION Nonspecific ST and T wave abnormalities ABNORMAL ECG PREVIOUS TRACING : 05/18/2010 08.27 Compared to prior tracing no significant change DOCTOR: Eren Contreras Interpretating Date/Time 05/15/2016 21:53:56
== END 2016-05-15 14:25 | disposition home or self-care (01) | DRG 310 ==
LOC: NEPA 09:27 → NEDA 11:36 → HCIS 17:55
PROVIDERS: ADMIT Internal Medicine; ATTEND Internal Medicine
DX: R00.1 Bradycardia, unspecified (principal); E11.22 Type 2 diabetes mellitus with diabetic chronic kidney disease; I12.9 Hypertensive chronic kidney disease with stage 1 through stage 4 chronic kidney disease, or unspecified chronic kidney disease; N18.9 Chronic kidney disease, unspecified; E03.9 Hypothyroidism, unspecified; R42 Dizziness and giddiness; R53.1 Weakness; E78.5 Hyperlipidemia, unspecified; M54.9 Dorsalgia, unspecified; G89.29 Other chronic pain; Z87.891 Personal history of nicotine dependence; Z79.84 Long term (current) use of oral hypoglycemic drugs
CPT/HCPCS: 71020; 80053; 82550; 82552; 82948; 83036; 83735; 84443; 84484; 85025; 85610; 85730; 93005; J1650

== ENCOUNTER 2016-06-22 11:47 | Day surgery (SDC) | payer OTHER ==
[2016-06-22] VITALS (7 sets, daily range): BP systolic 113–169; BP diastolic 62–82; PULSE 54–102; RESP 12–20; TEMP 96.6–98.4; O2SAT 97–100
[~2016-06-22] VITALS: Ht 160 cm; Wt 69.7 kg
[~2016-06-22 11:47] MED LIST changes: +AMLO5 PO; -ASPI325T PO; -CALC600T34 PO; -CO Q100C7 PO; -CYCL-36 PO; +ENAL2.5T PO; +FENO1TAB39 PO; +FURO20TA PO; -GEMF600 PO; -GLIP5 PO; +GLIP5TAB8 PO; +LEVO25TA4 PO; -LOVA1TAB47 PO; -METO50TA PO; +SITA25 PO; -SITA50 PO; -VASO10TA8 PO; -VICOTAB4 PO
[2016-06-22] MEDS ORDERED: METOPROLOL TARTRATE 25 MG TAB PO PRN (14:15)
[2016-06-22] MEDS ORDERED: LACTATED RINGER'S 1000 ML IV SCH (14:15)
[2016-06-22] MEDS ORDERED: SODIUM CHLORID 0.9% 500 ML IV SCH (14:15)
[2016-06-22] MEDS ORDERED: LORazepam 1 MG TAB SL SCH (14:15)
[2016-06-22] MEDS ORDERED: INSULIN HUMAN REGULAR 1,000 UNITS/10 ML VIAL SQ PRN (14:15)
[2016-06-22] MEDS ORDERED: SODIUM CHLORID 0.9% 500 ML INJ 500 ML IV SCH (14:15)
[2016-06-22] MEDS ORDERED: FENO54TA PO (14:39)
[2016-06-22] MEDS ORDERED: VITA2000 PO (14:39)
[2016-06-22 15:39] LABS: AUTOMATED NEUTROPHIL # 5.7 TH/MM3 (1.8-7.7); BASOPHIL # 0.1 TH/MM3 (0-0.2); BASOPHIL % 1.1 % (0.0-2.0); EOSINOPHIL # 0.2 TH/MM3 (0-0.4); EOSINOPHIL % 2.2 % (0.0-4.0); HEMATOCRIT 38.8 % (35.0-46.0); HEMO FLAGS DIFF FINAL; LYMPH % 19.4 % (9.0-44.0); LYMPHOCYTE # 1.5 TH/MM3 (1.0-4.8); MEAN CORPUSCULAR HEMOGLOBIN 30.7 PG (27.0-34.0); MEAN CORPUSCULAR HGB CONC 34.5 % (32.0-36.0); MONO % 4.4 % (0.0-8.0); NEUT % 72.9 % (16.0-70.0); PLATELET COUNT 257 TH/MM3 (150-450); RED BLOOD COUNT 4.36 MIL/MM3 (4.00-5.30); RED CELL DISTRIBUTION WIDTH 13.1 % (11.6-17.2); WHITE BLOOD COUNT 7.8 TH/MM3 (4.0-11.0)
[2016-06-22 15:42] LABS: INTERNATIONAL NORMALIZED RATIO 0.9 RATIO; PROTHROMBIN TIME - PATIENT 10.3 SEC (9.8-11.6)
[2016-06-22 15:55] LABS: BICARBONATE 27.7 MEQ/L (21.0-32.0); POTASSIUM 3.9 MEQ/L (3.5-5.1)
[2016-06-22] MEDS ORDERED: MIDAZOLAM HCL 2 MG/2 ML VIAL ONE (16:56)
[2016-06-22] MEDS ORDERED: ISOPROTERENOL HCL 1 MG/5 ML AMP ONE (17:21)
[2016-06-22] MEDS ORDERED: PROPOFOL 200 MG/20 ML AMP IV ONE (18:00)
[2016-06-22] MEDS ORDERED: DO NOT ADM ANY ANTICOAGULANT DRUGS XX PRN (19:45)
[2016-06-22] MEDS ORDERED: GLUCAGON 1 MG/ML VIAL OTHER PRN (19:45)
[2016-06-22] MEDS ORDERED: DEXTROSE 50% IN WATER 50 ML VIAL(D50) IV PUSH PRN (19:45)
[2016-06-22] MEDS ORDERED: ONDANSETRON HCL 4 MG/2 ML VIAL IV PRN (20:45)
[2016-06-22] MEDS ORDERED: LIDOCAINE HCL 1% 50 ML VIAL INFIL PRN (20:45)
[2016-06-22] MEDS ORDERED: ATROPINE SULFATE 1 MG/ML VIAL IV PRN (20:45)
[2016-06-22] MEDS ORDERED: oxyCODONE/ACETAMINOPHEN 5 MG/325 MG TAB PO PRN ×2 (20:45)
[2016-06-22] MEDS ORDERED: BACITRACIN OINT 0.9 GM PKT TOP ONE (20:45)
[2016-06-22] MEDS ORDERED: METOCLOPRAMIDE HCL 10 MG/2 ML VIAL IV PRN (20:45)
[2016-06-22] MEDS ORDERED: LORazepam 2 MG/ML VIAL IV PRN (20:45)
[2016-06-22] MEDS ORDERED: SODIUM CHLOR 0.9% 250 ML INJ 250 ML IV PRN (20:45)
[2016-06-22] MEDS: MEDIUM DOSE INSULIN NOVOLOG SUPPLEMENTAL SCALE SQ SCH (21:45)
[2016-06-23] VITALS (11 sets, daily range): BP systolic 115–130; BP diastolic 62–69; PULSE 48–65; RESP 12–16; TEMP 98.1–98.3; O2SAT 97–100
[2016-06-23] MEDS ORDERED: LEVOTHYROXINE SODIUM 25 MCG TAB PO SCH (06:00)
[2016-06-23] MEDS ORDERED: glipiZIDE 5 MG TAB PO SCH (07:00)
[2016-06-23] MEDS: MEDIUM DOSE INSULIN NOVOLOG SUPPLEMENTAL SCALE SQ SCH ×2 (07:00→11:12)
[2016-06-23] MEDS ORDERED: amLODIPine BESYLATE 5 MG TAB PO SCH (09:00)
[2016-06-23] MEDS ORDERED: FENOFIBRATE 48 MG TAB PO SCH ×2 (09:00)
[2016-06-23] MEDS ORDERED: CHOLECALCIFEROL (VIT D3) 1000 UNIT TAB PO SCH (09:00)
[2016-06-23] MEDS ORDERED: ENALAPRIL MALEATE 2.5 MG TAB PO SCH (09:00)
[2016-06-23] MEDS ORDERED: FUROSEMIDE 20 MG TAB PO SCH (09:00)
--- NOTE | 2016-06-23 10:24 | HHI.PR ---
Subjective Remarks Feeling ok Objective Vital Signs Date Time Temp Pulse Resp B/P Pulse Ox O2 Delivery O2 Flow Rate FiO2 06/23/16 07:00 98.1 65 16 130/69 100 06/23/16 06:07 97 06/23/16 06:00 54 06/23/16 05:00 56 06/23/16 04:00 52 06/23/16 03:00 58 06/23/16 03:00 98.3 58 12 115/62 97 06/23/16 02:00 50 06/23/16 01:00 48 06/23/16 00:00 48 06/22/16 23:00 58 06/22/16 23:00 98.4 54 12 113/62 97 06/22/16 22:00 102 06/22/16 21:00 70 06/22/16 20:00 70 06/22/16 19:00 96.6 70 16 164/79 100 06/22/16 19:00 55 06/22/16 18:47 98.0 56 20 158/62 100 06/22/16 14:24 98.0 62 18 169/82 97 I/O 06/22/16 06/22/16 06/22/16 06/23/16 06/23/16 06/23/16 07:00 15:00 23:00 07:00 15:00 23:00 Intake Total 480 ml Balance 480 ml Intake Oral 480 ml # Voids 4 # Bowel Movements 1 Result Diagram: 06/22/16 1410 06/22/16 1410 Imaging Alert, fully oriented Lungs: ventilated Heart: S1, S2 regular, no gallop Abdomen: soft, no mass Ext: no edema Vital Signs Date Time Temp Pulse Resp B/P Pulse Ox O2 Delivery O2 Flow Rate FiO2 06/23/16 07:00 98.1 65 16 130/69 100 06/23/16 06:07 97 06/23/16 06:00 54 06/23/16 05:00 56 06/23/16 04:00 52 06/23/16 03:00 58 06/23/16 03:00 98.3 58 12 115/62 97 06/23/16 02:00 50 06/23/16 01:00 48 06/23/16 00:00 48 06/22/16 23:00 58 06/22/16 23:00 98.4 54 12 113/62 97 06/22/16 22:00 102 06/22/16 21:00 70 06/22/16 20:00 70 06/22/16 19:00 96.6 70 16 164/79 100 06/22/16 19:00 55 06/22/16 18:47 98.0 56 20 158/62 100 06/22/16 14:24 98.0 62 18 169/82 97 Current Medications Medications (Trade) Dose Ordered Sig/Rene Route Start Time Stop Time Status Last Admin (NS 500 ml Inj) 500 ml @ 30 mls/hr [id number] IV 06/22/16 14:15 Miscellaneous Information ALL NURSING DEPARTME... UNSCH PRN XX 06/22/16 19:45 06/23/16 19:44 (D50w (Vial) Inj) 25 ml UNSCH PRN IV PUSH 06/22/16 19:45 (Glucagon Inj) 1 mg UNSCH PRN OTHER 06/22/16 19:45 (Percocet 5-325 Mg) 1 tab Q4H PRN PO 06/22/16 20:45 (Percocet 5-325 Mg) 2 tab Q4H PRN PO 06/22/16 20:45 06/22/16 21:46 (Ativan Inj) 0.5 mg UNSCH PRN IV 06/22/16 20:45 06/23/16 20:44 Atropine Sulfate 0.5 mg 0.5 mg UNSCH PRN IV 06/22/16 20:45 (NS 250 ml Inj) 250 ml @ 500 mls/hr ONCE PRN IV 06/22/16 20:45 06/23/16 20:44 (Reglan Inj) 10 mg Q4H PRN IV 06/22/16 20:45 (Zofran Inj) 4 mg Q4H PRN IV 06/22/16 20:45 (Xylocaine 1% Inj (50 ml)) 10 ml UNSCH PRN INFIL 06/22/16 20:45 06/23/16 20:44 (Norvasc) 2.5 mg DAILY PO 06/23/16 09:00 06/23/16 09:00 (Vitamin D3) 2,000 units DAILY PO 06/23/16 09:00 06/23/16 08:23 (Vasotec) 2.5 mg DAILY PO 06/23/16 09:00 06/23/16 08:25 (Lasix) 20 mg DAILY PO 06/23/16 09:00 06/23/16 08:24 (Glucotrol) 5 mg BIDAC PO 06/23/16 07:00 06/23/16 06:22 (Synthroid) 25 mcg DAILY@06 PO 06/23/16 06:00 06/23/16 06:22 (Januvia) 25 mg DAILY PO 06/23/16 09:00 06/23/16 08:24 (Tricor) 96 mg DAILY PO 06/23/16 09:00 06/23/16 08:23 Assessment and Plan Problem List: (1) SVT (supraventricular tachycardia) Status: Acute Plan: SP AVNRT ablation. Doing well Can be DH. Follow up as scheduled (2) HTN,DM Status: Acute Plan: SBP 130 Milady Merritt MD Jun 23, 2016 10:24
--- NOTE | 2016-06-23 22:56 | EKG ---
Date Performed: 06/23/2016 Time Performed: 06:29:44 PTAGE: 81 years EKG: Sinus rhythm with 1st degree A-V block Possible anteroseptal infarct - age undetermined Low QRS voltages in preco rdial leads Abnormal ECG PREVIOUS TRACING : 06/22/2016 21.31 DOCTOR: Milady Merritt Interpretating Date/Time 06/23/2016 22:56:08
--- NOTE | 2016-06-23 23:15 | EKG ---
Date Performed: 06/22/2016 Time Performed: 21:31:36 PTAGE: 81 years EKG: Sinus bradycardia with borderline 1st degree A-V block Poor R wave progression - probable n ormal variant Lateral T wave changes are nonspecific Borderline ECG PREVIOUS TRACING : 06/22/2016 13.26 DOCTOR: Milady Merritt Interpretating Date/Time 06/23/2016 23:13:35
--- NOTE | 2016-06-23 23:36 | EKG ---
Date Performed: 06/22/2016 Time Performed: 13:26:38 PTAGE: 81 years EKG: Sinus bradycardia Possible anteroseptal infarct - age undetermined Abnormal ECG PREVIOUS TRACING : 05/13/2016 09.39 DOCTOR: Milady Merritt Interpretating Date/Time 06/23/2016 23:32:46
--- NOTE | 2016-06-29 06:13 | MA ---
cc: KIT YAN M.D., HANSCY M.D. 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 INDICATIONS Mrs. 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 The risks, the nature and the benefit of the procedure are clearly stated to her. The risks include pneumothorax, cardiac perforation, stroke and even . She understood and agreed to proceed. PROCEDURE After written informed consent was obtained, the patient was brought to the EP Lab where she was prepped and draped in the usual sterile fashion. Conscious sedation was initiated and maintained throughout the procedure by the anesthesiologist. Once sedation was verified, the right and left inguinal area was anesthetized with 2% Xylocaine. Using modified Seldinger technique, the left femoral vein was cannulated on three occasions and three guidewires were advanced over the wire. three 5-Nepalese Hemaquets were advanced. Then the right femoral vein was cannulated on two occasions. Two guidewires were advanced over the wire. A 6-Nepalese and an 8-Nepalese Hemaquet were advanced. Then under fluoroscopic guidance through the 5 and 6-Nepalese Hemaquets, four 5-Nepalese Efrem curved quadripolar electrophysiology catheters were advanced and placed on the His, upper right atrium, coronary sinus and right ventricular apex. Basic intervals were measured. They were within normal limits. At this point atrial pacing protocol was performed. Atrial pacing protocol consisted of incremental atrial pacing as well as program stimulation with 110 cycle length and up to one extrastimuli delivered. During atrial pacing protocol, supraventricular tachyarrhythmia with intracardiac characteristic of AV sandeep reentrant tachycardia was induced. It was pace terminated. Then ventricular pacing protocol was performed. There was VA conduction and it was concentric. Then, through the 8-Nepalese Hemaquet, a [employer] Aly D-curved 4-mm mm mapping and radiofrequency ablation catheter was advanced. Using [employer] endocardial solution and mapping system, a three-dimensional configuration of the right atrium was obtained. Then the catheter was at the critical isthmus. When the big C and the small a observed, radiofrequency energy was delivered. Multiple junctional beats observed. Further burn was delivered in the area. At that point atrial pacing protocol was repeated again, no jump, no echo beat observed. No tachyarrhythmia was induced. Isuprel infusion was initiated. Atrial pacing protocol was repeated again and no tachyarrhythmia was induced. Post-Isuprel, no tachyarrhythmia was induced. At that point procedure was complete. All catheters were removed. The patient is going to be transferred to the recovery room. No incident reported. The patient tolerated the procedure. Blood loss minimal. 1. Electrocardiogram: At baseline the patient was in sinus. Postprocedure electrocardiogram was unchanged. 2. Basic Interval: Basic cycle length was 982 milliseconds, AH at 100 and HV at 68 milliseconds. 3. Left Atrial Pacing Protocol: Wenckebach of the node was not reached. The patient went into supraventricular tachyarrhythmia. 4. Ventricular Pacing Protocol: There was VA conduction; it was concentric. 5. 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 Slow pathway was mapped and ablated. Ablation was successful. 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 COMMENT AND RECOMMENDATIONS The patient is going to be transferred to the telemetry unit, will be observed and when stable will be discharged home in the morning. Milady Merritt MD HS/SSB /11:44 PM /5:53 AM
== END 2016-06-23 11:44 | disposition home or self-care (01) ==
LOC: HDOC 11:47 → HDIC 11:59 → HCIN 19:01 → HDOC 06-23 11:44
PROVIDERS: ATTEND Internal Medicine Interventional Cardiology
DX: I47.1 Supraventricular tachycardia (principal); I10 Essential (primary) hypertension; E11.9 Type 2 diabetes mellitus without complications; I44.0 Atrioventricular block, first degree; Z79.84 Long term (current) use of oral hypoglycemic drugs
CPT/HCPCS: 80048; 85025; 85610; 85730; 86850; 86900; 86901; 93005; 93613; 93623; 93653; C1730; C1732; C2630; J1815; J2250; J3010